=== PATIENT | female | born 1975 | race Caucasian/White ===

== ENCOUNTER 2025-02-15 21:35 | Inpatient (IN) | payer OTHER ==
[~2025-02-15] VITALS: Ht 167.6 cm; Wt 99.8 kg
[2025-02-15 21:37] VITALS: O2SAT 100
[2025-02-15 22:45] LABS: BASOPHILS % 0.2 % (0.0-2.0); EOSINOPHILS % 1.7 % (0.0-5.0); HEMATOCRIT. 39.4 % (36.0-48.0); HEMOGLOBIN. 13.4 g/dL (12.0-16.0); LYMPHOCYTES % 25.9 % (20.0-50.0); MEAN PLATELET VOLUME 8.4 fl (7.4-10.4); MONOCYTES % 7.3 % (2.0-8.0); NEUTROPHILS % 64.9 % (40.0-76.0); PLATELET 221 x1000/uL (130-400); RED BLOOD CELL COUNT 4.46 mill/uL (4.2-5.4); RED CELL DISTRIBUTION WIDTH 13.6 % (11.6-14.6)
[2025-02-15 22:58] LABS: HCG SCREEN NEGATIVE
[2025-02-15 23:02] LABS: CREATININE 0.9 mg/dL (0.6-1.0); UREA NITROGEN BLOOD 10 mg/dL (9-23)
[2025-02-16] MEDS ORDERED: CLONIDINE 0.1MG TABLET PO PRN (02:45)
[2025-02-16] MEDS ORDERED: ACETAMINOPHEN 325MG TABLET PO PRN ×2 (02:45)
[2025-02-16] MEDS ORDERED: ONDANSETRON HCL 4MG/2ML INJ IV PRN (02:45)
[2025-02-16] MEDS ORDERED: MAGNESIUM/ALUMINUM HYDROXIDE/SIMETHICONE 30ML UDC PO PRN (02:45)
[2025-02-16] MEDS ORDERED: LORAZEPAM 2MG/ML UD SYRINGE IV PRN (03:15)
[2025-02-16 03:22] VITALS: BP 111/60; PULSE 93; RESP 20; TEMP 36.418
[2025-02-16] MEDS ORDERED: INSU100V3 (03:27)
[2025-02-16] MEDS ORDERED: ATOR20TA65 PO (03:27)
[2025-02-16] MEDS ORDERED: INSU100I95 (03:27)
[2025-02-16] MEDS: POTASSIUM CHLORIDE 20MEQ/PACKET PO NR (03:53)
[2025-02-16 05:24] LABS: CLARITY URINE CLEAR (CLEAR); COLOR URINE YELLOW (YELLOW); GLUCOSE URINE 3+ (NEGATIVE); KETONES URINE NEGATIVE (NEGATIVE); LEUKOCYTE ESTERASE URINE NEGATIVE (NEGATIVE); NITRITE URINE NEGATIVE (NEGATIVE); OCCULT BLOOD URINE NEGATIVE (NEGATIVE); PH URINE 5.5 (4.5-8.0); PROTEIN URINE NEGATIVE (NEGATIVE); SPECIFIC GRAVITY URINE 1.016 (1.005-1.030); UROBILINOGEN URINE 0.2 E.U./dL (0.2-1.0)
[2025-02-16 05:37] LABS: *AMPHETAMINES SCREEN URINE NEGATIVE (NEGATIVE)
[2025-02-16 05:38] LABS: *BARBITURATES SCREEN URINE NEGATIVE (NEGATIVE); *BENZODIAZEPINES SCREEN URINE NEGATIVE (NEGATIVE); *COCAINE SCREEN URINE NEGATIVE (NEGATIVE); CANNABINOID URINE SCREEN NEGATIVE (NEGATIVE); ECSTASY MDMA SCREEN URINE CONF.TEST INDICATED (NEGATIVE); METHADONE URINE SCREEN NEGATIVE (NEGATIVE); OPIATES URINE SCREEN NEGATIVE (NEGATIVE); PHENCYCLIDINE URINE SCREEN NEGATIVE (NEGATIVE)
[2025-02-16 07:15] LABS: BACTERIA URINE NONE SEEN; RBC URINE NONE SEEN /hpf (0-2); SQUAMOUS EPITHELIAL CELL URINE FEW /lpf (RARE/1+); WBC URINE 0-2 /hpf (0-2)
[2025-02-16 08:00] VITALS: BP 127/71; PULSE 69; RESP 16; TEMP 36.6; O2SAT 99
[2025-02-16] MEDS ORDERED: DEXTROSE 50% WATER 50ML SYRINGE IV PRN (08:15)
[2025-02-16 10:26] VITALS: BP 127/71; PULSE 69; RESP 18; TEMP 97.9
[2025-02-16] MEDS: INSULIN GLARGINE 100 UNITS/ML SUBCUT SCH (10:30)
[2025-02-16] MEDS ORDERED: BLOOD SUGAR DIAGNOSTIC STRIP TEST SCH (12:20)
[2025-02-16] MEDS ORDERED: INSULIN LISPRO 100 UNITS/ML SUBCUT SCH (12:50)
== END 2025-02-16 11:05 | disposition home or self-care (01) | DRG 948 ==
LOC: EDBD 21:35 → ER 21:35 → 6WST 02-16 00:59 → EDBEDREQTM 02-16 01:01 → EDBEDREQ 02-16 01:01 → ENRESERV 02-16 01:25
PROVIDERS: ADMIT Student in an Organized Health Care Education/Training Program; ATTEND Student in an Organized Health Care Education/Training Program
DX: R41.82 Altered mental status, unspecified (principal); E11.9 Type 2 diabetes mellitus without complications; Z79.4 Long term (current) use of insulin; Y90.8 Blood alcohol level of 240 mg/100 ml or more
CPT/HCPCS: 36415; 80048; 80305; 80320; 81003; 82962; 84703; 85025; 93005; 99285; J1815; G0480